=== PATIENT | male | born 1965 | race Caucasian/White ===

== ENCOUNTER 2016-09-17 07:09 | Emergency (ER) | payer BC ==
[2016-09-17 07:24] VITALS: BP 138/104
[2016-09-17] MEDS ORDERED: Ipratropium 0.5MG/2.5ML NEB* 0.5 MG/2.5 ML NEB.SOLN INH ONE (07:45)
[2016-09-17] MEDS ORDERED: Albuterol 2.5 MG/3 ML NEB.SOL* (0.083%) INH ONE (07:45)
--- NOTE | 2016-09-17 12:02 | UC ---
Tien Oconnell Billy, scribed for Ernestina Talbert DO on 09/17/16 at 0743 . General HPI - HPI Summary HPI Summary: Patient is a 50 year-old male coming to [facility] [place] of approximately 9 days of cold symptoms. Patient states that his symptoms started with head and sinus congestion, progressing into chest congestion in this last week. He has been coughing, short of breath, and he has had intermittent nausea and dizziness. He also reports intermittent mid-back pain that is worse with deep breaths and when seated in certain positions. Denies any chest pain, abdominal pain, or vomiting. Denies sore throat, earache, or eye discharge. - History of Current Complaint Chief Complaint: UCGeneralIllness Stated Complaint: CONGEST, COUGH, Time Seen by Provider: 09/17/16 07:25 Hx Obtained From: Patient Onset/Duration: Gradual Onset, Lasting Days, Still Present Timing: Constant Onset Severity: Moderate Current Severity: Moderate Pain Intensity: 2 Pain Location at: back pain Aggravating: worse with deep breaths and when seated in certain positions Associated Signs & Symptoms: Positive: Back Pain, Cough, Nausea, SOB, Wheezing. Negative: Abdominal Pain, Chest Pain - Allergy/Home Medications Allergies/Adverse Reactions: Allergies Allergy/AdvReac Type Severity Reaction Status Date / Time No Known Allergies Allergy Verified 09/17/16 07:12 Home Medications: Home Medications Levofloxacin TAB* [Levaquin 500 Tab*] 1 tab PO DAILY 09/17/16 [History Confirmed 09/17/16] Multiple Vitamins W/ Minerals [Multivitamin Adults] 1 tab PO DAILY 09/17/16 [ History Confirmed 09/17/16] Probiotic Product [Acidophilus Probiotic] 1 tab PO DAILY 09/17/16 [History Confirmed 09/17/16] PMH/Surg Hx/FS Hx/Imm Hx Endocrine History Of: Denies: Diabetes Cardiovascular History Of: Denies: Cardiac Disorders Respiratory History Of: Reports: Bronchitis - HX OF NONE IN ABOUT 5 YEARS GI/ History Of: Reports: Diverticulitis Other History Of: Hepatitis C - Surgical History Surgical History: Yes Surgery Procedure, Year, and Place: 12/2015 [place] [facility] [place] - Family History Known Family History: Positive: Respiratory Disease - Emphysema (grandfather), Other - Grandmother with unspecified vision problem. - Social History Occupation: Employed Full-time - [place] Lives: With Family Alcohol Use: Daily Alcohol Amount: 2-3 beers daily - NONE IN PAST 1 WEEK Substance Use Type: Marijuana Substance Use Comment - Amount & Last Used: .25oz/ week- 4-5 days since smoking last Smoking Status (MU): Heavy Every Day Tobacco Smoker Type: Cigarettes Amount Used/How Often: 1.5 ppd Have You Smoked in the Last Year: Yes Household Exposure Type: Cigarettes Cessation Counseling: Counseled 3+Min - 10 Min - Immunization History Most Recent Influenza Vaccination: Not UTD Review of Systems Constitutional: Negative Skin: Negative Eyes: Negative ENT: Other - sinus congestion Respiratory: Shortness Of Breath, Cough, Other - chest congestion Cardiovascular: Negative Gastrointestinal: Other - nausea Genitourinary: Negative Motor: Negative Neurovascular: Negative Musculoskeletal: Other: - back pain Neurological: Other - dizziness Psychological: Negative All Other Systems Reviewed And Are Negative: Yes Physical Exam Triage Information Reviewed: Yes Appearance: Well-Appearing, No Pain Distress, Well-Nourished Vital Signs: Initial Vital Signs Temp 98.6 F 09/17/16 07:15 Pulse 77 09/17/16 07:15 Resp 20 09/17/16 07:15 BP 138/104 09/17/16 07:15 Pulse Ox 96 09/17/16 07:15 Vital Signs Reviewed: Yes Eyes: Positive: Conjunctiva Clear. Negative: Discharge ENT: Positive: Normal ENT inspection, TMs normal. Negative: Tonsillar swelling , Tonsillar exudate, Trismus, Muffled/hoarse voice Neck exam: Normal Neck: Positive: Supple Respiratory: Positive: No respiratory distress, No accessory muscle use, Wheezing - Diffuse wheezing in all xie. Cardiovascular: Positive: RRR, No Murmur Musculoskeletal Exam: Normal Neurological Exam: Normal Neurological: Positive: Alert, Muscle Tone Normal Psychological Exam: Normal Psychological: Positive: Age Appropriate Behavior Skin Exam: Normal, Other - Warm, dry skin. Course/Dx - Differential Dx - Multi-Symptom Provider Diagnoses: acute bronchitis Discharge - Discharge Plan Condition: Stable Disposition: HOME Prescriptions: Albuterol 2.5MG/3ML (0.083%)* [Ventolin 2.5 MG/3 ML NEB.AVA*] 2.5 mg INH Q4H PRN #1 box PRN Reason: Sob/Wheezing Albuterol HFA INHALER* [Ventolin HFA Inhaler*] 2 puff INH Q4H PRN #1 mdi PRN Reason: Sob/Wheezing DOXYcycline CAP(*) [DOXYcycline 100MG CAP(*)] 100 mg PO BID #20 cap guaiFENesin ER TAB [Mucinex*] 600 mg PO BID PRN #1 box PRN Reason: Cough guaiFENesin/CODIEN 100MG-10MG* [Robitussin AC 100Mg-10Mg*] 5 - 10 ml PO BEDTIME PRN #100 udc MDD 10ml PRN Reason: Cough predniSONE TAB* [Deltasone TAB*] 40 mg PO DAILY #10 tab Patient Education Materials: Acute Bronchitis (ED) Referrals: Kwabena Sam MD [Medical Doctor] - (Follow up in 3-5 days. Follow up sooner if symptoms worsen or new symptoms develop.) Additional Instructions: INHALED BRONCHODILATORS: You have received a prescription for an inhaled bronchodilator -- a medication which stimulates the airways in the lung to dilate. This improves the flow of air in asthma, bronchitis, and emphysema. These medicines have some similarity to adrenaline, and can cause similar side effects: shakiness, racing heart, and a sense of nervousness. These side effects decrease with time. Contact your doctor if these side effects are severe. Do not over-use the medicine. Too-frequent use of the inhaler may make it ineffective. Call your doctor if the inhaler is not controlling your symptoms at the prescribed doses. COUGH-SUPPRESSANT & EXPECTORANT MEDICATION: You are to use a cough medication as needed for relief of symptoms. This medicine is a combination of an expectorant (to make the mucous thinner and more easily "coughed up") and a cough suppressant (to reduce the frequency of coughing). The cough-suppressant medicine is related to narcotics. You may experience mild nausea and sleepiness. Some patients who are very sensitive to narcotics may have stomach pain from this medicine. Taking the medicine with food reduces these side effects. Do not drive or work with machinery until you know how this medicine affects you. The expectorant should have no side effects. Iodine-containing expectorants (such as organidin) should not be taken by persons with active thyroid disease unless approved by your doctor. Call the doctor if you develop shortness of breath, hives, rash, itching, lightheadedness, or severe nausea and vomiting. EXPECTORANT MEDICATION: An expectorant medicine has been prescribed. This type of drug makes mucous thinner, helping the sinuses, nose, and bronchial tubes to remain free of pus and mucous. Expectorants make a cough less severe and more comfortable, and help infected sinuses drain. In general, antihistamines defeat the purpose of the expectorant by making mucous thicker. They should be avoided unless specifically recommended by your physician. DOXYCYCLINE: Doxycycline (Vibramycin, Doryx) is an antibiotic of the tetracycline family. This type of drug is useful for infections of the respiratory tract and genital tract, and is sometimes used for intestinal infections. Unlike most tetracyclines, doxycycline can be taken with food. It is longer acting, and (usually) less prone to side effects than regular tetracycline. Tetracycline antibiotics can stain immature teeth and SHOULD NOT BE TAKEN BY CHILDREN, NURSING MOTHERS, OR WOMEN. Tetracyclines can make you more prone to sunburn. Abdominal cramping, nausea, and diarrhea are occasional side effects. Women may experience vaginal yeast infections. Call the doctor at once if you develop hives, itching, shortness of breath , or lightheadedness. DISCUSSED, DOXY ALSO INCREASES YOUR RISK OF SUNBURN. COVER UP WHEN YOU GO OUTSIDE. ANY TIME YOU TAKE AN ANTIBIOTIC, IT IS IMPORTANT TO REPLENISH THE BODY'S BALANCE OF "GOOD" BACTERIA BY EATING HIGH QUALITY CULTURED FOOD SUCH YOGURT, SAURKRAUT OR NICO CHI AND/OR TAKING A PROBIOTIC SUPPLEMENT. WE ARE CHEERING FOR YOU IN YOUR RESOLVE TO NOT START SMOKING AGAIN. IF PEOPLE SMOKE INSIDE, THEY ARE SMOKING EVERY MINUTE THAT THEY ARE AT HOME, EVEN IN THEIR SLEEP! IT IS ALSO IMPORTANT TO GET THE SMOKE CLEANED OUT, OFF THE REYNOSO, THE CEILING AND THE UPHOLSTERY. THIS WILL HELP YOU GET FREE AND KEEP YOU HEALTHY. GOOD LUCK. The documentation as recorded by the Tien alfaro Billy accurately reflects the service I personally performed and the decisions made by me, Ernestina Talbert DO.
== END 2016-09-17 09:41 | disposition home or self-care (01) ==
LOC: UCEAST 07:09
DX: J20.9 Acute bronchitis, unspecified (principal); F17.210 Nicotine dependence, cigarettes, uncomplicated; Z71.6 Tobacco abuse counseling
CPT/HCPCS: 99212; G0463; J7644

== ENCOUNTER 2017-02-19 09:03 | Emergency (ER) | payer BC ==
[2017-02-19 09:36] VITALS: BP 141/98
--- NOTE | 2017-02-19 10:25 | UC ---
Back Pain HPI - History of Current Complaint Chief Complaint: UCBackPain Stated Complaint: BACK INJURY Time Seen by Provider: 02/19/17 10:24 - Allergies/Home Medications Allergies/Adverse Reactions: Allergies Allergy/AdvReac Type Severity Reaction Status Date / Time No Known Allergies Allergy Verified 02/19/17 09:36 PMH/Surg Hx/FS Hx/Imm Hx Other History Of: Hepatitis C - Surgical History Surgical History: Yes Surgery Procedure, Year, and Place: 12/2015 COLONOSCOPY, [facility] - Family History Known Family History: Positive: Respiratory Disease - Emphysema (grandfather), Other - Grandmother with unspecified vision problem. - Social History Alcohol Use: Daily Alcohol Amount: 2-3 beers daily - NONE IN PAST 1 WEEK Substance Use Type: Marijuana Substance Use Comment - Amount & Last Used: .25oz/ week- 4-5 days since smoking last Smoking Status (MU): Heavy Every Day Tobacco Smoker Type: Cigarettes Amount Used/How Often: 1.5 ppd Have You Smoked in the Last Year: Yes Household Exposure Type: Cigarettes - Immunization History Most Recent Influenza Vaccination: Not UTD Physical Exam Vital Signs: Initial Vital Signs Temp 99.3 F 02/19/17 09:31 Pulse 86 02/19/17 09:31 Resp 20 02/19/17 09:31 BP 141/98 02/19/17 09:31 Pulse Ox 100 02/19/17 09:31
--- NOTE | 2017-02-27 18:58 | UC ---
Back Pain HPI - HPI Summary HPI Summary: Patient presents with complaints of low back pain s/p stepping off a ladder, he reports pain in his lower back that is worse with movement and improves with rest. He denies incontinence of bowel or bladder. He denies pain radiating to the lower extremities. - History of Current Complaint Chief Complaint: UCBackPain Stated Complaint: BACK INJURY Time Seen by Provider: 02/19/17 10:24 Hx Obtained From: Patient Onset/Duration: Sudden Onset Timing: Constant Severity Initially: Moderate Severity Currently: Moderate Pain Intensity: 4 Pain Scale Used: 0-10 Numeric Character: Sharp, Spasmodic Aggravating: Movement, Lifting, Bending, Walking Alleviating: Rest Associated Signs And Symptoms: Positive: Negative - Risk Factors AAA Risk Factors: Negative - Allergies/Home Medications Allergies/Adverse Reactions: Allergies Allergy/AdvReac Type Severity Reaction Status Date / Time No Known Allergies Allergy Verified 02/19/17 09:36 PMH/Surg Hx/FS Hx/Imm Hx Previously Healthy: Yes Other History Of: Hepatitis C - Surgical History Surgical History: Yes Surgery Procedure, Year, and Place: 12/2015 COLONOSCOPY, [facility] - Family History Known Family History: Positive: Respiratory Disease - Emphysema (grandfather), Other - Grandmother with unspecified vision problem. - Social History Occupation: Employed Part-time Lives: Alone Alcohol Use: Daily Alcohol Amount: 2-3 beers daily - NONE IN PAST 1 WEEK Substance Use Type: Marijuana Substance Use Comment - Amount & Last Used: .25oz/ week- 4-5 days since smoking last Smoking Status (MU): Heavy Every Day Tobacco Smoker Type: Cigarettes Amount Used/How Often: 1.5 ppd Have You Smoked in the Last Year: Yes Household Exposure Type: Cigarettes - Immunization History Most Recent Influenza Vaccination: Not UTD Review of Systems Musculoskeletal: Myalgia All Other Systems Reviewed And Are Negative: Yes Physical Exam Triage Information Reviewed: Yes Appearance: Well-Appearing Vital Signs: Initial Vital Signs Temp 99.3 F 02/19/17 09:31 Pulse 86 02/19/17 09:31 Resp 20 02/19/17 09:31 BP 141/98 02/19/17 09:31 Pulse Ox 100 02/19/17 09:31 Vital Signs Reviewed: Yes Eye Exam: Normal ENT Exam: Normal Neck exam: Normal Respiratory Exam: Normal Cardiovascular Exam: Normal Musculoskeletal: Positive: Strength Limited @, ROM Limited @ - ck inspected; vertrbra are in good aligment without step-offs or deformities, no areas of eccymosis, erthema or edema. nontender midline. reporducible pain of the lumbar musculature of the lateral aspects. lower extremity strength testing 4/5, with negaitve straight leg raise. patellar reflexes 2+ b/l. sensory without deficits to touch. Skin Exam: Normal Back Pain Course/Dx - Course Course Of Treatment: Patient presents with complaints of low back pain, nontraumatic. no evidence of cauda equina syndrome. He has had similar pain before and states he did well with muscle relaxants. He was RX Soma and discharged home. If for any reason his symtpoms his symtpoms worsen or persist he was instructed to follow up with his PCP. - Differential Dx/Diagnosis Differential Diagnosis/HQI/PQRI: Strain, Sprain Provider Diagnoses: acute lumbar sprain Discharge - Discharge Plan Condition: Stable Disposition: HOME Prescriptions: Carisoprodol TAB* [Soma TAB*] 350 mg PO BEDTIME #14 tab MDD 1 Patient Education Materials: Back Pain (ED) Referrals: Deven Johnson MD [Primary Care Provider] -
== END 2017-02-19 10:38 | disposition home or self-care (01) ==
LOC: UCEAST 09:03
DX: S33.5XXA Sprain of ligaments of lumbar spine, initial encounter (principal); X58.XXXA Exposure to other specified factors, initial encounter; Y93.9 Activity, unspecified; Y92.9 Unspecified place or not applicable; F17.210 Nicotine dependence, cigarettes, uncomplicated
CPT/HCPCS: 99212; G0463